=== PATIENT | female | born 1995 | race Caucasian/White ===

== ENCOUNTER 2018-02-19 12:21 | Emergency (ER) | payer BC ==
[2018-02-19 12:46] LABS: ABS Basophils 0 10^3/ul (0-0.2); ABS Eosinophils 0.1 10^3/ul (0-0.6); ABS Lymphocytes 1.4 10^3/ul (1.0-4.8); ABS Monocytes 0.4 10^3/ul (0-0.8); ABS Neutrophils 3.5 10^3/ul (1.5-7.7); ABS Nucleated RBC 0 10^3/ul; Eosinophil % 2.2 % (0-6); Hematocrit 42 % (35-47); Hemoglobin 14.3 g/dl (12.0-16.0); Lymphocyte % 25.2 % (25-47); Mean Corpuscular HGB Conc 34 g/dl (31-36); Mean Corpuscular Hemoglobin 33 pg (27-31); Mean Corpuscular Volume 96 fL (80-97); Nucleated Red Blood Cells % 0.1; Platelet Count 156 10^3/ul (150-450); Red Blood Count 4.34 10^6/ul (4.0-5.4); Red Cell Distribution Width 14 % (10.5-15); White Blood Count 5.5 10^3/ul (3.5-10.8)
[2018-02-19] MEDS ORDERED: Ketorolac INJ* 30 MG/ML 1 ML VIAL IV PUSH ONE (12:47)
[2018-02-19 13:05] LABS: EGFR Non-African American 108.5 (>60)
--- NOTE | 2018-02-19 13:30 | ED ---
GI/ HPI - HPI Summary HPI Summary: 22 female presents with right-sided abdominal pain for a day. She denies any nausea or vomiting. She states she is hungry. She denies any diarrhea constipation. She states pain is constant. States pain is more intense. She denies any chest pressure or SOB. She denies any flank pain. Denies pain with urination. She denies any abnormal vaginal discharge. She denies any fevers. She has never had this pain before. No previous abdominal surgeries. No history of ovarian cysts. - History of Current Complaint Chief Complaint: EDAbdPain Time Seen by Provider: 02/19/18 12:24 Stated Complaint: ABD PAIN Pain Intensity: 8 - Allergy/Home Medications Allergies/Adverse Reactions: Allergies Allergy/AdvReac Type Severity Reaction Status Date / Time No Known Allergies Allergy Verified 02/19/18 12:52 Home Medications: Home Medications NK [No Home Medications Reported] 02/19/18 [History Confirmed 02/19/18] PMH/Surg Hx/FS Hx/Imm Hx Endocrine/Hematology History: Denies: Hx Anticoagulant Therapy Respiratory History: Denies: Hx Asthma Infectious Disease History: No Infectious Disease History: Denies: Traveled Outside the [place] in Last 30 Days - Family History Known Family History: Negative: Renal Disease - Social History Alcohol Use: Occasionally Substance Use Type: Reports: None Smoking Status (MU): Never Smoked Tobacco Review of Systems Negative: Fever Negative: Chest Pain Negative: Shortness Of Breath Positive: Abdominal Pain. Negative: Vomiting, Diarrhea, Nausea Negative: flank pain All Other Systems Reviewed And Are Negative: Yes Physical Exam Triage Information Reviewed: Yes Vital Signs On Initial Exam: Initial Vitals Pulse Resp Pulse Ox 61 12 100 02/19/18 12:26 02/19/18 12:26 02/19/18 12:26 Vital Signs Reviewed: Yes Appearance: Positive: Pain Distress Skin: Positive: Warm, Dry Head/Face: Positive: Normal Head/Face Inspection Eyes: Positive: Normal, EOMI, HARVINDER, Conjunctiva Clear ENT: Positive: Normal ENT inspection, Pharynx normal, TMs normal Respiratory/Lung Sounds: Positive: Clear to Auscultation, Breath Sounds Present Cardiovascular: Positive: Normal, RRR Abdomen Description: Positive: Soft, Other: - tenderness RUQ and RLQ. Negative : CVA Tenderness (R) Bowel Sounds: Positive: Present Pelvic Exam: Positive: External Exam Normal, Speculum Exam Normal, Bimanual Exam Normal, No Cerv. Motion Tender Musculoskeletal: Positive: Normal Neurological: Positive: Normal Psychiatric: Positive: Normal Diagnostics - Vital Signs Vital Signs Temp Pulse Resp BP Pulse Ox 02/19/18 12:50 99.6 F 62 18 123/92 95 02/19/18 12:32 60 14 123/92 95 02/19/18 12:26 61 12 100 - Laboratory Lab Results: Lab Results 02/19/18 02/19/18 Range/Units 12:33 12:33 WBC 5.5 (3.5-10.8) 10^3/ul RBC 4.34 (4.0-5.4) 10^6/ul Hgb 14.3 (12.0-16.0) g/dl Hct 42 (35-47) % MCV 96 (80-97) fL MCH 33 H (27-31) pg MCHC 34 (31-36) g/dl RDW 14 (10.5-15) % Plt Count 156 (150-450) 10^3/ul MPV 10.0 (7.4-10.4) um3 Neut % (Auto) 64.0 (38-83) % Lymph % (Auto) 25.2 (25-47) % [place] % (Auto) 7.7 H (0-7) % Eos % (Auto) 2.2 (0-6) % Baso % (Auto) 0.9 (0-2) % Absolute Neuts (auto) 3.5 (1.5-7.7) 10^3/ul Absolute Lymphs (auto) 1.4 (1.0-4.8) 10^3/ul Absolute Monos (auto) 0.4 (0-0.8) 10^3/ul Absolute Eos (auto) 0.1 (0-0.6) 10^3/ul Absolute Basos (auto) 0 (0-0.2) 10^3/ul Absolute Nucleated RBC 0 10^3/ul Nucleated RBC % 0.1 Sodium 139 (139-145) mmol/L Potassium 3.7 (3.5-5.0) mmol/L Chloride 105 (101-111) mmol/L Carbon Dioxide 24 (22-32) mmol/L Anion Gap 10 (2-11) mmol/L BUN 15 (6-24) mg/dL Creatinine 0.69 (0.51-0.95) mg/dL Est GFR ( Amer) 139.5 (>60) Est GFR (Non-Af Amer) 108.5 (>60) BUN/Creatinine Ratio 21.7 H (8-20) Glucose 81 (70-100) mg/dL Calcium 9.8 (8.6-10.3) mg/dL Total Bilirubin 0.50 (0.2-1.0) mg/dL AST 24 (13-39) U/L ALT 29 (7-52) U/L Alkaline Phosphatase 77 (34-104) U/L C-React Prot High Sens 0.61 mg/L Total Protein 7.4 (6.4-8.9) g/dL Albumin 4.7 (3.2-5.2) g/dL Globulin 2.7 (2-4) g/dL Albumin/Globulin Ratio 1.7 (1-3) Lipase < 10 L (11.0-82.0) U/L Beta HCG, Quant < 0.60 mIU/mL Result Diagrams: 02/19/18 12:33 02/19/18 12:33 Lab Statement: Any lab studies that have been ordered have been reviewed, and results considered in the medical decision making process. - CT abd CT Interpretation: No Acute Changes CT Interpretation Completed By: Radiologist - Ultrasound No standard instances Ultrasound Interpretation: Positive (See Comments) Ultrasound Interpretation Completed By: Radiologist CHAZ Course/Dx - Course Course Of Treatment: 22 female presents with right-sided abdominal pain for a day. She denies any nausea or vomiting. She states she is hungry. She denies any diarrhea constipation. She states pain is constant. States pain is more intense. She denies any chest pressure or SOB. She denies any flank pain. Denies pain with urination. She denies any abnormal vaginal discharge. She denies any fevers. She has never had this pain before. No previous abdominal surgeries. No history of ovarian cysts. On exam tenderness right upper right lower quadrant with rebound. Labs within normal limits. Pelvic exam normal. Gallbladder ultrasound and transvaginal ultrasound normal. CT abdomen no infection. Urine likely contaminant. Follow-up with Fr[facility] tomorrow. Develop any changes return to ED. Patient understands agrees with plan. - Diagnoses Differential Diagnoses - Female: Appendicitis, Gall Bladder Disease, Pelvic Inflammatory Disease Provider Diagnoses: Abdominal pain Discharge - Sign-Out/Discharge Documenting (check all that apply): Discharge - Discharge Plan Condition: Good Disposition: HOME Patient Education Materials: Acute Abdominal Pain (ED) Referrals: No Primary Care Phys,NOPCP [Medical Doctor] - Additional Instructions: Drink small amounts of fluid as tolerated When able to eat follow BRAT diet: Bananas, rice, applesauce, toast Take ibuprofen or Tylenol for pain as needed every 6 hours Follow up with [facility] tomorrow Return to ED if develop fever, vomiting, or increase in pain in RLQ, any new or worsening symptoms - Billing Disposition and Condition Condition: GOOD Disposition: HOME
[2018-02-19] MEDS ORDERED: Morphine INJ* 4 MG/ML 1 ML SYRINGE (NEW SYRINGE VERSION) IV ONE (13:35)
[2018-02-19] MEDS ORDERED: Morphine INJ* 2 MG/ML 1 ML CARPUJECT ONE (13:38)
--- NOTE | 2018-02-19 13:52 | RAD ---
INDICATION: Right upper quadrant pain COMPARISON: None TECHNIQUE: Longitudinal and transverse scans of the right upper quadrant were obtained. Doppler interrogation of the hepatic and portal venous system was performed. FINDINGS: Liver: The liver is normal in size and echogenicity. There are no focal masses. The liver measures 17.9 cm in cephalocaudal dimension. Vessels: There is normal hepatic and portal venous flow. Bile ducts: There is no evidence of intrahepatic or extrahepatic ductal dilatation. The common duct measures 0.3 cm. Gallbladder: The sonographic appearance of the gallbladder is normal. There is no evidence of cholelithiasis, thickening of the gallbladder wall, or pericholecystic fluid. Pancreas: The visualized pancreas appears normal Right kidney: The right kidney is normal in size and echogenicity. There are no masses or calculi. There is no evidence of hydronephrosis. The right kidney measures 11.2 x 4.2 x 5.3 cm. IVC and aorta: The aorta and superior vena cava appear normal. Fluid: There is no ascites. Other: None. IMPRESSION: NORMAL STUDY.
[2018-02-19] MEDS ORDERED: Iohexol 300* (CONTRAST) 10 ML SDV IV ONE (14:37)
--- NOTE | 2018-02-19 15:17 | RAD ---
Indication: 1 day RIGHT lower quadrant pain. IUD placed October 2017. LMP January 20, 2018. Comparison: No relevant prior exams available on the [facility] [place] [facility] PACS for comparison. Technique: Transvaginal pelvic ultrasound. Report: 6.9 x 2.6 x 3.8 cm anteverted uterus. 2.3 mm endometrium. IUD appears in appropriate position within the endometrial cavity. Physiologic range small volume of free pelvic fluid at the cul-de-sac. 2.7 x 1.8 x 1.9 cm RIGHT ovary with documented vascular flow is unremarkable. 3.2 x 1.4 x 1.8 cm LEFT ovary with documented vascular flow is unremarkable. No visualized extra ovarian adnexal region lesions evident. IMPRESSION: IUD appears in appropriate position. Unremarkable ovaries and adnexal regions.
[2018-02-19 15:51] LABS: Urine Appearance Cloudy; Urine Blood Negative (Negative); Urine Color Yellow; Urine Ketones 2+ (Negative); Urine Protein Negative (Negative); Urine Urobilinogen Negative (Negative)
--- NOTE | 2018-02-19 16:31 | RAD ---
INDICATION: RIGHT upper quadrant and RIGHT lower quadrant pain. COMPARISON: Pelvic and RIGHT upper quadrant ultrasound exams of the same date. TECHNIQUE: Multidetector CT images were obtained from the lung bases to the ischial tuberosities with 79 mL Omnipaque 300 IV and oral contrast. Multiplanar reformation. REPORT: Unremarkable visualized inferior thorax. Decreased density of the liver relative to the spleen consistent with fatty infiltration. Negative for focal liver lesions or biliary dilatation. No CT abnormality of the gallbladder, pancreas, spleen. Negative for CT abnormality of the upper GI, small bowel, or medially extending appendix visualized along the RIGHT pelvic sidewall partially inseparable from adjacent small bowel loops. Unremarkable colon with moderate stool without sigmoidal or rectal distention. Physiologic small volume of free fluid in the cul-de-sac. Negative for free air or hernias. Normal adrenal glands. Unremarkable kidneys with symmetric nephrograms and pyelograms. No suspicious finding along the course of the nondilated ureters. Largely decompressed urinary bladder without gross abnormality. Anteverted uterus with IUD in place. Unremarkable adnexal regions. Negative for lymphadenopathy. Normal diameter abdominal aorta and iliac arteries. Physiologic distention of the IVC. Negative for suspicious osseous lesions. IMPRESSION: 1. Mildly decreased density of the liver favoring fatty infiltration. 2. Normal appendix documented. No pathologic process of the alimentary tract evident. 3. Negative for obstructive uropathy. 4. Physiologic small volume of free fluid in the cul-de-sac.
[2018-02-19 16:56] VITALS: BP 100/61
== END 2018-02-19 16:55 | disposition home or self-care (01) ==
LOC: ED 12:21
DX: R10.11 Right upper quadrant pain (principal); R10.31 Right lower quadrant pain; Z32.02 Encounter for pregnancy test, result negative; Z97.5 Presence of (intrauterine) contraceptive device
CPT/HCPCS: 36415; 74177; 76705; 76830; 80053; 81003; 81015; 83690; 84702; 85025; 86141; 87086; 87480; 87491; 87510; 87591; 87661; 96374; 96375; 99283; J1885; J2270; Q9967

== ENCOUNTER 2018-10-12 16:09 | Emergency (ER) | payer BC ==
--- NOTE | 2018-10-12 17:20 | ED ---
Head Injury - HPI Summary HPI Summary: Pt is a 22 year old F presenting to the ED with a chief complaint of a head injury. She was walking in parking garage and walked into a concrete wall, cutting her head. Previous hx of concussions, wisdom teeth removal, infrequent alcohol, no smoking. - History Of Current Complaint Chief Complaint: EDHeadInjury Stated Complaint: HEAD LAC Time Seen by Provider: 10/12/18 16:55 Hx Obtained From: Patient Mechanism Of Injury: Blunt Trauma Onset/Duration: Started Hours Ago Onset of Pain: Immediate Severity Currently: Mild Severity Initially: Mild Pain Intensity: 3 Pain Scale Used: 0-10 Numeric Location of Head Injury: Temporal Character: Sharp Alleviating Factor(s): Rest Associated Signs And Symptoms: Swelling, Redness, Bruising, Other: - laceration - Allergies/Home Medications Allergies/Adverse Reactions: Allergies Allergy/AdvReac Type Severity Reaction Status Date / Time fang Allergy Rash Verified 10/12/18 16:17 PMH/Surg Hx/FS Hx/Imm Hx Previously Healthy: Yes Endocrine/Hematology History: Denies: Hx Anticoagulant Therapy, Hx Diabetes Respiratory History: Denies: Hx Asthma Infectious Disease History: No Infectious Disease History: Denies: Traveled Outside the [place] in Last 30 Days - Family History Known Family History: Negative: Renal Disease - Social History Alcohol Use: Occasionally Substance Use Type: Reports: None Smoking Status (MU): Never Smoked Tobacco Review of Systems Negative: Fever Skin: Other - skin laceration on head Positive: Headache All Other Systems Reviewed And Are Negative: Yes Physical Exam - Summary Physical Exam Summary: VITAL SIGNS: Reviewed. GENERAL: Patient is a well-developed and nourished female who is lying comfortable in the stretcher. Patient is not in any acute respiratory distress. HEAD AND FACE: No signs of trauma. No ecchymosis, hematomas or skull depressions. No sinus tenderness. EYES: PERRLA, EOMI x 2, No injected conjunctiva, no nystagmus. EARS: Hearing grossly intact. Ear canals and tympanic membranes are within normal limits. MOUTH: Oropharynx within normal limits. NECK: Supple, trachea is midline, no adenopathy, no JVD, no carotid bruit, no c- spine tenderness, neck with full ROM. CHEST: Symmetric, no tenderness at palpation LUNGS: Clear to auscultation bilaterally. No wheezing or crackles. CVS: Regular rate and rhythm, S1 and S2 present, no murmurs or gallops appreciated. ABDOMEN: Soft, non-tender. No signs of distention. No rebound no guarding, and no masses palpated. Bowel sounds are normal. EXTREMITIES: FROM in all major joints, no edema, no cyanosis or clubbing. NEURO: Alert and oriented x 3. No acute neurological deficits. Speech is normal and follows commands. SKIN: Dry and warm, laceration on head Triage Information Reviewed: Yes Vital Signs On Initial Exam: Initial Vitals Temp Pulse Resp BP Pulse Ox 98 F 81 14 118/78 98 10/12/18 16:16 10/12/18 16:16 10/12/18 16:16 10/12/18 16:16 10/12/18 16:16 Vital Signs Reviewed: Yes Procedures - Laceration/Wound Repair 1 Location: head Description: Linear Anesthesia: Local, 2.0%, Lido, Epi Length, Depth and Shape: 4mm linear Laceration/Wound Explored: clean Closure: Lorane #__ - 2 Debridement: minimal Diagnostics - Vital Signs Vital Signs Temp Pulse Resp BP Pulse Ox 10/12/18 16:47 98.6 F 69 18 116/66 10/12/18 16:16 98 F 81 14 118/78 98 - Laboratory Lab Statement: Any lab studies that have been ordered have been reviewed, and results considered in the medical decision making process. Head Injury Course/Dx Assessment/Plan: Pt is a 22 year old F presenting to the ED with a chief complaint of a head injury. She was walking in parking garage and walked into a concrete wall, cutting her head. Previous hx of concussions, wisdom teeth removal, infrequent alcohol, no smoking. Patient has an a small laceration approximately 4 mm in size. The wound was cleaned and I placed 2 cc of lidocaine 2% with epinephrine and I proceeded to place 2 brittni. There was no complications. The patient is alert and oriented 3 and has no acute neurological focal deficits. Therefore the patient was discharged home with follow-up with PCP. She reports that she is up-to-date on vaccinations. 7-10 days she will go to see PCP or return to the emergency room for suture removals. - Diagnoses Provider Diagnoses: Head contusion, Laceration Discharge - Sign-Out/Discharge Documenting (check all that apply): Patient Departure - Discharge Plan Condition: Stable Disposition: HOME Referrals: [facility] [place] PHYSICIAN REFERRAL [Outside] - Billing Disposition and Condition Condition: STABLE Disposition: Home - Attestation Statements Document Initiated by Gregoryibberna: Yes Documenting Scribe: Sanna Nichols Provider For Whom Ranjeet is Documenting (Include Credential): Johan Mark MD. Scribe Attestation: Sanna Lambert, scribed for Johan Mark MD. on 10/13/18 at 0758. Scribe Documentation Reviewed: Yes Provider Attestation: The documentation as recorded by the gregoryibe, Sanna Nichols accurately reflects the service I personally performed and the decisions made by Johan bender MD. Status of Scribe Document: Viewed
[2018-10-12] MEDS ORDERED: Lidocaine 2% EPI 1:200000 MPF*10-20 ML VIAL INJ ONE (17:54)
[2018-10-12] MEDS ORDERED: Lidocaine 2% EPI 1:200000 MPF*10-20 ML VIAL ONE (17:55)
[2018-10-12 18:27] VITALS: BP 107/63
== END 2018-10-12 18:25 | disposition home or self-care (01) ==
LOC: ED 16:09
DX: S01.01XA Laceration without foreign body of scalp, initial encounter (principal); W22.01XA Walked into wall, initial encounter; Y93.01 Activity, walking, marching and hiking; Y92.89 Other specified places as the place of occurrence of the external cause
CPT/HCPCS: 12001; 99281

== ENCOUNTER 2018-10-22 17:23 | Emergency (ER) | payer BC ==
[2018-10-22 17:42] VITALS: BP 105/67
--- NOTE | 2018-10-22 18:40 | UC ---
HPI Wound/Suture Re-check - HPI Summary HPI Summary: PATIENT HAD 2 BRITTNI PLACED IN SCALP 10 DAYS AGO IN THE ED AFTER STRIKING HER HEAD ON A CONCRETE PILLAR. IT IS HEALING WELL. NO REDNESS OR DRAINAGE. NO HEADACHE. IS HERE FOR STAPLE REMOVAL. - History Of Current Complaint Chief Complaint: Romie Stated Complaint: STAPLE REMOVAL Time Seen by Provider: 10/22/18 18:28 Hx Obtained From: Patient Hx Last Menstrual Period: iud Onset/Duration: Sudden Onset Severity: Mild Pain Intensity: 0 Pain Scale Used: 0-10 Numeric - Allergies/Home Medications Allergies/Adverse Reactions: Allergies Allergy/AdvReac Type Severity Reaction Status Date / Time fang Allergy Rash Verified 10/22/18 17:43 PMH/Surg Hx/FS Hx/Imm Hx Previously Healthy: Yes Other History Of: Negative For: Anticoagulant Therapy - Surgical History Surgical History: None - Family History Known Family History: Negative: Renal Disease - Social History Alcohol Use: Occasionally Substance Use Type: None Smoking Status (MU): Never Smoked Tobacco Review of Systems All Other Systems Reviewed And Are Negative: Yes Constitutional: Positive: Negative Skin: Positive: Other - BRITTNI INSCALP Respiratory: Positive: Negative Cardiovascular: Positive: Negative Gastrointestinal: Positive: Negative Neurological: Positive: Negative Physical Exam Triage Information Reviewed: Yes Appearance: Well-Appearing, No Pain Distress, Well-Nourished Vital Signs: Initial Vital Signs Temp 98.0 F 10/22/18 17:38 Pulse 59 10/22/18 17:38 Resp 16 10/22/18 17:38 BP 105/67 10/22/18 17:38 Pulse Ox 100 10/22/18 17:38 Vital Signs Reviewed: Yes Eyes: Positive: Conjunctiva Clear ENT: Positive: Hearing grossly normal Neck: Positive: Supple Respiratory: Positive: No respiratory distress, No accessory muscle use Cardiovascular: Positive: Pulses Normal Abdomen Description: Positive: Soft Musculoskeletal: Positive: No Edema Neurological: Positive: Alert Psychological: Positive: Age Appropriate Behavior Skin: Positive: Other - 2 BRITTNI IN SCALP. WOUND EDGES C/D/I. NO ERYTHEMA Course/Dx - Course Course Of Treatment: 2 BRITTNI REMOVED WITHOUT DIFFICULTY. WOUND EDGES REMAIN C/ D/I. - Diagnosis Provider Diagnosis: Removal of brittni Discharge - Sign-Out/Discharge Documenting (check all that apply): Patient Departure All imaging exams completed and their final reports reviewed: No Studies - Discharge Plan Condition: Stable Disposition: HOME Patient Education Materials: Stitches Removal (ED) [facility] - If Needed Additional Instructions: 2 BRITTNI REMOVED WITHOUT DIFFICULTY TODAY. SEEK FOLLOW-UP IF YOU DEVELOP SPREADING REDNESS OF THE SKIN, PURULENT DRAINAGE, FEVER, INCREASED PAIN OR ANY OTHER CONCERNING SYMPTOMS. - Billing Disposition and Condition Condition: STABLE Disposition: Home
== END 2018-10-22 18:45 | disposition home or self-care (01) ==
LOC: UCEAST 17:23
DX: S01.01XD Laceration without foreign body of scalp, subsequent encounter (principal); W22.09XD Striking against other stationary object, subsequent encounter